=== PATIENT | male | born 1960 | race Caucasian/White ===

== ENCOUNTER 2024-02-20 10:25 | Inpatient (IN) | payer OTHER ==
[2024-02-20 10:55] VITALS: BMI 23.6
[2024-02-20] MEDS ORDERED: DICYCLOMINE HCL 10 MG CAPSULE PO PRN (13:01)
[2024-02-20] MEDS ORDERED: LOPERAMIDE HCL 2 MG CAPSULE PO PRN (13:01)
[2024-02-20] MEDS ORDERED: NALOXONE (NARCAN) HCL 4 MG/0.1 ML SPRAY NS PRN (13:01)
[2024-02-20] MEDS ORDERED: BENZOCAINE/MENTHOL (CHLORASEPTIC ) LOZENGE MM PRN (13:01)
[2024-02-20] MEDS ORDERED: ACETAMINOPHEN 325 MG TABLET (FP) PO PRN (13:01)
[2024-02-20] MEDS ORDERED: ONDANSETRON *ODT* 4 MG TABLET SL PRN (13:01)
[2024-02-20] MEDS ORDERED: BENZONATATE 200 MG CAPSULE PO PRN (13:01)
[2024-02-20] MEDS ORDERED: POLYETHYLENE GLYCOL (HEALTHYLAX) 3350 17 GM PACKET PO PRN (13:01)
[2024-02-20] MEDS ORDERED: MAG HYDROX/AL HYDROX/SIMETH 30 ML UNIT-DOSE CUP PO PRN (13:01)
[2024-02-20] MEDS ORDERED: NALOXONE HCL 0.4 MG/ML VIAL IM PRN (13:01)
[2024-02-20] MEDS ORDERED: NICOTINE POLACRILEX 2 MG GUM BUC PRN (13:01)
[2024-02-20] MEDS ORDERED: IBUPROFEN 400 MG TABLET (FP) PO PRN (13:01)
[2024-02-20] MEDS ORDERED: IBUPROFEN 600 MG TABLET (FP) PO PRN (13:01)
[2024-02-20] MEDS ORDERED: MAGNESIUM HYDROX 2400MG/30ML ORAL SUSPENSION 30 ML CUP PO PRN (13:01)
[2024-02-20] MEDS ORDERED: BISMUTH SUBSALICYLATE 262 MG/15 ML BTL PO PRN (13:01)
[2024-02-20] MEDS ORDERED: guaiFENesin 600 MG TABLET.ER (FP) PO PRN (13:01)
[2024-02-20] MEDS ORDERED: NICOTINE 7 MG/24 HOURS TOPICAL PATCH TD ONE (13:56)
[2024-02-20] MEDS ORDERED: PRENATAL VITAMINS W/ FOLIC ACID TABLET (FP) PO ONE (13:56)
[2024-02-20] MEDS: PRENATAL VITAMINS W/ FOLIC ACID TABLET (FP) PO SCH (18:15)
[2024-02-20] MEDS: NICOTINE 7 MG/24 HOURS TOPICAL PATCH TD SCH (18:15)
[2024-02-20] MEDS: THIAMINE 100 MG TABLET PO SCH (23:00)
[2024-02-20] MEDS: hydrOXYzine PAMOATE 25 MG CAPSULE (FP) PO PRN (23:00)
[2024-02-20] MEDS: MELATONIN 5 MG TABLETS PO SCH (23:00)
[2024-02-20] MEDS: METHOCARBAMOL 500 MG TABLET PO PRN (23:00)
[2024-02-21] MEDS: methaDONE 40 MG, methaDONE 30 MG PO SCH (09:59)
[2024-02-21] MEDS ORDERED: methaDONE HCL 40 MG DISPERSABLE TABLET PO SCH (10:00)
[2024-02-21 12:02] LABS: CHLORIDE 108 mmol/L (98-107); HEMATOCRIT 35.8 % (35.4-49); HEMOGLOBIN 11.9 GM/dL (11.7-16.9); MCH 29.7 pg (25.7-33.7); MCHC 33.3 g/dl (32.0-35.9); MEAN CELL VOLUME 89.1 fl (80-96); MEAN PLT VOLUME 8.8 fl (7.5-11.1); PLATELET COUNT 196 10^3/uL (134-434); POTASSIUM 4.7 mmol/L (3.5-5.1); RBC 4.02 M/mm3 (4.00-5.60); RDW 15.2 % (11.9-15.9); SODIUM 140 mmol/L (136-145); WHITE BLOOD COUNT 3.9 K/mm3 (4.0-10.0)
[2024-02-21 12:10] LABS: ALBUMIN 3.1 g/dl (3.4-5.0)
[2024-02-21 12:12] LABS: ANION GAP 4 mmol/L (4-13); BLOOD UREA NITROGEN 21.2 mg/dL (7-18); CALCIUM 8.7 mg/dL (8.5-10.1); CO2 29 mmol/L (21-32); GLUCOSE,RANDOM 92 mg/dL (74-106)
[2024-02-21 12:14] LABS: SGPT/ALT 43 U/L (13-61)
[2024-02-21 12:15] LABS: SGOT/AST 25 U/L (15-37)
[2024-02-21 12:16] LABS: BILIRUBIN,TOTAL 0.4 mg/dL (0.2-1)
[2024-02-21 12:18] LABS: ALK PHOS 90 U/L (45-117)
[2024-02-21] MEDS: P-EPHED 60MG/TRIPROLIDI 2.5MG TABLET PO PRN (22:48)
[2024-02-22] MEDS: methaDONE HCL 40 MG DISPERSABLE TABLET PO ONE (09:36)
[2024-02-23] MEDS: methaDONE 80 MG, methaDONE 10 MG PO ONE (09:08)
[2024-02-23] MEDS ORDERED: methaDONE HCL 10 MG TABLET PO ONE (10:00)
[2024-02-24 06:11] VITALS: RESP 16
[2024-02-24] MEDS ORDERED: methaDONE 80 MG, methaDONE 10 MG PO ONE (09:03)
[2024-02-24 09:42] VITALS: BP 149/94; PULSE 67; TEMP 97.7
[2024-02-24] MEDS: methaDONE 80 MG, methaDONE 20 MG PO ONE (09:59)
[2024-02-24] MEDS ORDERED: methaDONE HCL 10 MG TABLET PO ONE (10:00)
== END 2024-02-24 11:17 | disposition home or self-care (01) | DRG 773 ==
LOC: YASAS 10:25 → Y3N 14:06
PROVIDERS: ADMIT Allergy & Immunology; ATTEND Surgery
PROC: HZ2ZZZZ Detoxification Services for Substance Abuse Treatment (ICD-10-PCS; principal; 2024-02-20)
DX: F11.23 Opioid dependence with withdrawal (principal); F14.20 Cocaine dependence, uncomplicated; F10.20 Alcohol dependence, uncomplicated; F17.210 Nicotine dependence, cigarettes, uncomplicated
CPT/HCPCS: 36415; 80053; 80305; 80307; 85027; 86780; 93005; 93010